=== PATIENT | female | born 1950 | race Caucasian/White ===

== ENCOUNTER 2016-04-26 07:11 | Emergency (ER) | payer OTHER ==
[2016-04-26 07:23] VITALS: BP 152/74
--- NOTE | 2016-04-26 07:30 | UC ---
Throat Pain/Nasal Avtar HPI - HPI Summary HPI Summary: SORE THROAT X 1 DAY , NO FEVER, + COUGH, NASAL CONGESTION + STREP CONTACT AND FLU CONTACT - History of Current Complaint Chief Complaint: UCRespiratory Stated Complaint: SINUS,SORE THROAT Time Seen by Provider: 04/26/16 07:24 Hx Obtained From: Patient Hx Last Menstrual Period: age 50s Onset/Duration: Gradual Onset, Lasting Days - 1, Still Present Severity: Moderate Cough: None Associated Signs & Symptoms: Positive: Sinus Discomfort, Nasal Discharge. Negative: Fever, Rash - Allergies/Home Medications Allergies/Adverse Reactions: Allergies Allergy/AdvReac Type Severity Reaction Status Date / Time Azithromycin [From Zithromax] Allergy Hives Verified 04/26/16 07:17 Mushroom Extract Complex Allergy Anaphylatic Verified 04/26/16 07:17 Shock mushrooms Allergy Anaphylatic Uncoded 04/26/16 07:17 Shock PMH/Surg Hx/FS Hx/Imm Hx Previously Healthy: Yes - Surgical History Surgical History: Yes Surgery Procedure, Year, and Place: C-Sections, 1975 1978. Cholecystectomy, 1999, [facility]. Left Foot Tumor, 2012, [facility] - Family History Known Family History: Positive: None Negative: Diabetes - Social History Alcohol Use: None Substance Use Type: None Smoking Status (MU): Former Smoker When Did the Patient Quit Smoking/Using Tobacco: 35 YRS AGO - Immunization History Most Recent Influenza Vaccination: 2016 Review of Systems Constitutional: Chills, Fatigue Skin: Negative Eyes: Negative ENT: Sore Throat, Nasal Discharge Respiratory: Cough Cardiovascular: Negative Gastrointestinal: Negative Genitourinary: Negative All Other Systems Reviewed And Are Negative: Yes Physical Exam Triage Information Reviewed: Yes Appearance: Well-Appearing, No Pain Distress, Well-Nourished Vital Signs: Initial Vital Signs Temp 99.1 F 04/26/16 07:19 Pulse 108 04/26/16 07:19 Resp 20 04/26/16 07:19 BP 152/74 04/26/16 07:19 Pulse Ox 97 04/26/16 07:19 Vital Signs Reviewed: Yes Eyes: Positive: Conjunctiva Clear ENT: Positive: Normal ENT inspection, Hearing grossly normal, Pharyngeal erythema, Nasal congestion, TMs normal. Negative: Nasal drainage Neck exam: Normal Neck: Positive: Supple, Nontender, No Lymphadenopathy Respiratory: Positive: Chest non-tender, Lungs clear, Normal breath sounds Cardiovascular: Positive: RRR, No Murmur, Pulses Normal Abdominal Exam: Normal Skin Exam: Normal Throat Pain/Nasal Course/Dx - Differential Dx/Diagnosis Provider Diagnoses: VIRAL PHARYNGITIS Discharge - Discharge Plan Condition: Stable Disposition: HOME Patient Education Materials: Pharyngitis (ED) Referrals: Deb Espitia MD [Primary Care Provider] - If Needed Additional Instructions: NEGATIVE RAPID STREP VIRAL PHARYNGITIS , NO NEED FOR ABX AT THIS TIME CONT. WITH REST, INCREASE FLUID, TYLENOL NEEDED FOR PAIN AND FEVER FOLLOW UP NEEDED
== END 2016-04-26 07:49 | disposition home or self-care (01) ==
LOC: UCCORT 07:11
DX: J02.9 Acute pharyngitis, unspecified (principal); Z87.891 Personal history of nicotine dependence
CPT/HCPCS: 87651; 99211; G0463

== ENCOUNTER 2017-03-15 10:00 | Emergency (ER) | payer OTHER ==
--- NOTE | 2017-03-15 11:24 | UC ---
Throat Pain/Nasal Avtar HPI - HPI Summary HPI Summary: Pt presents with sinus symptoms and cough. She tells me that about a month ago she developed sinus pain/pressure/congestion and was seen by here PCP and rx'd amoxicillin for 10 days. Her symptoms resolved for about a week, but then returned 1 week ago. Over the last 2-3 days she has developed a dry cough. She has tried mucinex and "cold and flu" medicine OTC with no relief. She also tells me that after taking the amoxicillin she developed a yeast infection, requiring diflucan. Denies fevers, chills, SOB, chest pain, abdominal pain, N/V/ D/C - History of Current Complaint Stated Complaint: CONGESTION Time Seen by Provider: 03/15/17 11:23 Hx Obtained From: Patient Hx Last Menstrual Period: age 50s Onset/Duration: Gradual Onset Severity: Moderate Cough: Nonproductive - Allergies/Home Medications Allergies/Adverse Reactions: Allergies Allergy/AdvReac Type Severity Reaction Status Date / Time Azithromycin [From Zithromax] Allergy Hives Verified 03/15/17 11:18 Mushroom Extract Complex Allergy Anaphylatic Verified 03/15/17 11:18 Shock mushrooms Allergy Anaphylatic Uncoded 03/15/17 11:18 Shock Home Medications: Home Medications Naproxen TAB* [Naprosyn 250 mg TAB*] 250 mg PO Q8H PRN 03/15/17 [History Confirmed 03/15/17] Phenylephrine-Diphenhydramine- [Robitussin Cough & Cold D] 1 mis PO PRN [History] PMH/Surg Hx/FS Hx/Imm Hx - Additional Past Medical History Additional PMH: SLE Previously Healthy: Yes - Surgical History Surgical History: Yes Surgery Procedure, Year, and Place: C-Sections, 1975 1978. [facility]cystectomy, [facility], [facility]. Left Foot Tumor, 2012, [facility] - Family History Known Family History: Positive: None Negative: Diabetes - Social History Occupation: Employed Full-time Lives: With Family Alcohol Use: None Substance Use Type: None Smoking Status (MU): Former Smoker When Did the Patient Quit Smoking/Using Tobacco: 35 YRS AGO - Immunization History Most Recent Influenza Vaccination: 2016 Review of Systems Constitutional: Negative Skin: Negative Eyes: Negative ENT: Sore Throat, Nasal Discharge, Sinus Congestion, Sinus Pain/Tenderness Respiratory: Cough Cardiovascular: Negative Gastrointestinal: Negative Neurological: Negative Psychological: Negative All Other Systems Reviewed And Are Negative: Yes Physical Exam Triage Information Reviewed: Yes Appearance: Well-Appearing, Well-Nourished Vital Signs Reviewed: Yes Eyes: Positive: Conjunctiva Clear. Negative: Conjunctiva Inflamed, Discharge ENT: Positive: Hearing grossly normal, Pharynx normal, Nasal congestion, Nasal drainage, TMs normal, Sinus tenderness, Uvula midline. Negative: Pharyngeal erythema, TM bulging, TM dull, TM red, Tonsillar swelling, Tonsillar exudate Neck: Positive: Supple, Nontender, No Lymphadenopathy Respiratory: Positive: Chest non-tender, No respiratory distress, No accessory muscle use, Wheezing - Throughout. Negative: Crackles, Rhonchi Cardiovascular: Positive: RRR, No Murmur, Pulses Normal Neurological: Positive: Alert Psychological: Positive: Age Appropriate Behavior Skin: Negative: rashes Throat Pain/Nasal Course/Dx - Course Course Of Treatment: Sinusitis - Augmentin. Bronchitis - Albuterol. Yeast - Diflucan - Differential Dx/Diagnosis Differential Diagnosis/HQI/PQRI: Influenza, Otitis Media, Sinusitis, Tonsillitis , URI Provider Diagnoses: Sinusitis. Bronchitis Discharge - Discharge Plan Condition: Stable Disposition: HOME Prescriptions: Albuterol HFA INHALER* [Ventolin HFA Inhaler*] 1 - 2 puff INH Q6H PRN #1 mdi PRN Reason: Cough Amoxicillin/Clavulanate TAB* [Augmentin TAB 875*] 875 mg PO BID #20 tab Fluconazole 100 MG TAB* [Diflucan 100 MG TAB*] 100 mg PO DAILY #1 tab Patient Education Materials: Sinusitis (ED), Acute Bronchitis (ED) Forms: *Work Release Referrals: Deb Espitia MD [Primary Care Provider] - Additional Instructions: If you develop a fever, SOB, chest pain, new or worsening symptoms - please call your PCP or go to the ED. Your blood pressure was high at todays visit. Please see your primary provider within 4 weeks for recheck and re-evaluation.
[2017-03-15 11:27] VITALS: BP 140/66
== END 2017-03-15 11:41 | disposition home or self-care (01) ==
LOC: UCCORT 10:00
DX: J32.9 Chronic sinusitis, unspecified (principal); J40 Bronchitis, not specified as acute or chronic; Z88.1 Allergy status to other antibiotic agents; Z90.49 Acquired absence of other specified parts of digestive tract; Z87.891 Personal history of nicotine dependence
CPT/HCPCS: 99211; G0463

== ENCOUNTER 2018-04-09 08:46 | Emergency (ER) | payer MEDICARE, OTHER ==
[2018-04-09 09:06] VITALS: BP 143/83
--- NOTE | 2018-04-09 09:56 | UC ---
Throat Pain/Nasal Avtar HPI - HPI Summary HPI Summary: Patient presents to urgent care reporting 6 days of progressive cough congestion sinus pressure. Patient states she has pain in her chest with coughing only. Patient has taken Tylenol and Motrin for fevers of 100.1. Last dose last night. Patient also reports coughing yellow and green sputum. Patient denies headache. Patient with ear pain, sinus congestion. Patient without sick contacts of states her is becoming sick. Patient did get a flu vaccine this year. Patient is not immunocompromised otherwise. Patient' s medications reviewed this visit. - History of Current Complaint Chief Complaint: UCRespiratory Stated Complaint: SORE THROAT, COUGH Time Seen by Provider: 04/09/18 09:43 Hx Obtained From: Patient Hx Last Menstrual Period: age 50s Pain Intensity: 10 - Allergies/Home Medications Allergies/Adverse Reactions: Allergies Allergy/AdvReac Type Severity Reaction Status Date / Time azithromycin Allergy Hives Verified 04/09/18 09:02 mushrooms Allergy Anaphylatic Uncoded 03/15/17 11:18 Shock PMH/Surg Hx/FS Hx/Imm Hx Previously Healthy: Yes - Surgical History Surgical History: Yes Surgery Procedure, Year, and Place: C-Sections, 1975 1978. Cholecystectomy, 1999, [facility]. Left Foot Tumor, 2012, [facility] - Family History Known Family History: Positive: None Negative: Diabetes - Social History Occupation: Retired Lives: With Family Alcohol Use: Occasionally Substance Use Type: None Smoking Status (MU): Former Smoker When Did the Patient Quit Smoking/Using Tobacco: 35 YRS AGO - Immunization History Most Recent Influenza Vaccination: 2016 Review of Systems All Other Systems Reviewed And Are Negative: Yes Constitutional: Positive: Fever, Fatigue Skin: Positive: Negative ENT: Positive: Ear Ache, Nasal Discharge, Sinus Congestion Respiratory: Positive: Shortness Of Breath Cardiovascular: Positive: Negative Physical Exam - Summary Physical Exam Summary: Vital Signs Reviewed: Yes A+Ox3, no distress Eyes: Conjunctiva Clear, TONI. EOM intact and full ENT: Hearing grossly normal TM x 2 clear, mmoist, uvula midline, no exudate, no erythema Neck: Positive: Supple Respiratory: Positive: coarse, persistent cough + scattered wheeze, decreased BS left base no retraction, sentences interrupted with cough Cardiovascular: RRR nl s1, s2 no m/r CBT <2 sec abd soft + BS nt/nd no guarding, no distension Musculoskeletal Exam: NASH x 4 without difficulty Strength Intact, ROM Intact Neurological: Positive: Alert, + sensation throughout Psychological: Positive: Normal Response To Family Skin: Positive: no rash, no ecchymosis Triage Information Reviewed: Yes Vital Signs: Initial Vital Signs Temp 98.4 F 04/09/18 09:01 Pulse 88 04/09/18 09:01 Resp 16 04/09/18 09:01 BP 143/83 04/09/18 09:01 Pulse Ox 98 04/09/18 09:01 Diagnostics - Radiology No standard instances Radiology Interpretation Completed By: Radiologist - Patient Name: RAUL CONDON Medical Record#: [id number] Ordering Physician: Adamaris Mariano MD Acct.#: [id number] : 1950 Age: 68 Sex: F Location: [facility] Exam Date: 04/09/18 1000 ADM Status: REG ER Order Information: CHEST PA & LAT 2 VWS Accession Number: [id number] CPT: 97078 HISTORY: cough, right base rhonci COMPARISONS: None VIEWS: 4: Frontal dual-energy and lateral views of the chest. FINDINGS: CARDIOMEDIASTINAL SILHOUETTE: The cardiomediastinal silhouette is normal. OTILIA: The otilia are normal. PLEURA: The costophrenic angles are sharp. No pleural abnormalities are noted. LUNG PARENCHYMA: The lungs are clear. ABDOMEN: The upper abdomen is clear. There is no subphrenic gas. BONES AND SOFT TISSUES: No bone or soft tissue abnormalities are noted. OTHER: None. IMPRESSION: NO ACTIVE CARDIOPULMONARY DISEASE. <Electronically signed by Carmelo Fairchild MD in OV> 1032 Dictated By: Carmelo Fairchild MD Dictated Date/Time: 04/09/18 1032 Transcribed Date/Time: 04/09/18 1031 Copy to: CC:Adamaris Mariano MD; Deb Espitia MD Imaging - [facility] Imaging [facility] [address] [place] [id number] ph ([phone]) ph ([phone]) ph ([phone]) This report is only to be considered final once signed by the Provider(s) as displayed in the "<Electronically Signed by >" field (s). Absence of a signature indicates the report is in a draft status and still needs to be finalized. In the event this document was created by someone other than the signing Provider, the individual initiating the document will be listed in the "Entered by:" or "Dictated by:" dean. 1 of 1 Re-Evaluation - Re-Evaluation First Eval Change: Improved - Pt improved following neb -cough improved reviewed cxr Will rx abx humidified air secretion precaution return precaution d/w robitussin with codeine - narcotic precaution, return precaution pt comfortable and in agreement with plan Throat Pain/Nasal Course/Dx - Course Course Of Treatment: Patient presents to urgent care with 6 days progressive persistent cough. Patient states clear phlegm. Patient also with tactile temperatures last measured temperature was 100.12 days ago. Patient's been taking [id number] medications with little improvement. Patient states the cough keeps her awake at night. On exam patient with scattered wheezing and decreased breath sounds at left base. We'll give nebulizer chest x-ray and reassess. Patient in agreement with. pt's BP mildly elevated - recommend recehck with PCP Assessment/Plan: This report was requested by: Adamaris Mariano | Reference #: [id number] - Differential Dx/Diagnosis Provider Diagnosis: Acute bronchitis Discharge - Sign-Out/Discharge Documenting (check all that apply): Patient Departure All imaging exams completed and their final reports reviewed: Yes - Discharge Plan Condition: Stable Disposition: HOME Prescriptions: Albuterol HFA INHALER* [Ventolin HFA Inhaler*] 2 puff INH Q4H PRN #1 mdi PRN Reason: wheeze Amoxicillin PO (*) [Amoxicillin 500 MG CAP*] 500 mg PO Q12H #20 cap Fluconazole [Diflucan 150 MG (NF)] 150 mg PO ONCE PRN #1 tab PRN Reason: vaginal yeast infection guaiFENesin/CODIEN 100MG-10MG* [Robitussin AC 100Mg-10Mg*] 10 ml PO TID #100 ml MDD 30 Patient Education Materials: Acute Bronchitis (ED) Referrals: Deb Espitia MD [Primary Care Provider] - Additional Instructions: -Take antibiotics exactly as prescribed until gone -Use your albuterol puffer - 2 puffs every 4 hours for the next 2 days - then as needed -Stay well hydrated - avoid excess caffeine and all alcohol - eat regular, healthy meals - - humidify the air in the room where you sleep - boil water, run a hot steam shower, vaporizer, cups of water by heat register - okay to take over the counter decongestant and cough medication. you have been given a prescription for robitussin with codeine. Do NOT drive, operate machinery, drink alcohol or operate machinery while taking - this is a narcotic -- These infections are spread by secretions - do NOT share eating or drinking utensils - clean items you share with other people such as cell phones, computer mouse, TV remote, computer tablets,etc.. Once you have been antibiotics for 2 days, change your toothbrush and your pillowcase. -Contact your doctor to arrange a follow-up appointment this week. Call your doctor, return here or go to the emergency department with any questions or concerns - Billing Disposition and Condition Condition: STABLE Disposition: Home
[2018-04-09] MEDS ORDERED: Albuterol/Ipratropium NEB.SOL* Albuterol 2.5 MG/Ipratropium 0.5 MG 3 ML INH ONE (10:01)
== END 2018-04-09 10:58 | disposition home or self-care (01) ==
LOC: UCCORT 08:46
DX: J20.9 Acute bronchitis, unspecified (principal); Z88.1 Allergy status to other antibiotic agents; Z87.891 Personal history of nicotine dependence
CPT/HCPCS: 71046; 99212; A9270-GY; G0463

== ENCOUNTER 2018-04-14 10:07 | Emergency (ER) | payer MEDICARE, OTHER ==
[2018-04-14 10:44] VITALS: BP 147/66
--- NOTE | 2018-04-14 11:28 | UC ---
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 - History of Current Complaint Chief Complaint: UCLowerExtremity Stated Complaint: RT ANKLE INJURY Time Seen by Provider: 04/14/18 11:21 Hx Obtained From: Patient Hx Last Menstrual Period: age 50s Onset/Duration: Sudden Onset Timing: Constant Pain Intensity: 6 Aggravating: weight on ankle Associated Signs & Symptoms: Positive: Edema. Negative: Fever - Allergy/Home Medications Allergies/Adverse Reactions: Allergies Allergy/AdvReac Type Severity Reaction Status Date / Time azithromycin Allergy Hives Verified 04/14/18 10:40 mushrooms Allergy Anaphylatic Uncoded 04/14/18 10:40 Shock PMH/Surg Hx/FS Hx/Imm Hx Endocrine History: Dyslipidemia GI/ History: Gastroesophageal Reflux - Surgical History Surgical History: Yes Surgery Procedure, Year, and Place: C-Sections, 1975 1978. Cholecystectomy, 1999, [facility]. Left Foot Tumor, 2012, [facility] - Family History Known Family History: Positive: None Negative: Diabetes - Social History Alcohol Use: Occasionally Substance Use Type: None Smoking Status (MU): Former Smoker When Did the Patient Quit Smoking/Using Tobacco: ~1982 - Immunization History Most Recent Influenza Vaccination: 2016 Vaccination Up to Date: Yes Review of Systems All Other Systems Reviewed And Are Negative: Yes Constitutional: Positive: Negative Skin: Positive: Negative Eyes: Positive: Negative ENT: Positive: Negative Respiratory: Positive: Negative Cardiovascular: Positive: Negative Gastrointestinal: Positive: Negative Genitourinary: Positive: Negative Motor: Positive: Negative Neurovascular: Positive: Negative Musculoskeletal: Positive: Edema - R ankle with pain Neurological: Positive: Negative Psychological: Positive: Negative Is Patient Immunocompromised?: No Physical Exam Triage Information Reviewed: Yes Appearance: Well-Appearing Vital Signs: Initial Vital Signs Temp 98 F 04/14/18 10:37 Pulse 63 04/14/18 10:37 Resp 16 04/14/18 10:37 BP 147/66 04/14/18 10:37 Pulse Ox 99 04/14/18 10:37 Vital Signs Reviewed: Yes ENT: Positive: Normal ENT inspection Neck: Positive: Supple Respiratory: Positive: Lungs clear Cardiovascular: Positive: RRR, No Murmur Abdomen Description: Positive: Nontender, No Organomegaly, Soft Bowel Sounds: Positive: Present Musculoskeletal: Positive: Other: - RLE: hip, knee, achilles and foot non tender and no deformity. lateral ankle is swollen and tender with limited rom. foot has full s/v/m function. Psychological: Positive: Age Appropriate Behavior Skin Exam: Normal Diagnostics - Radiology No standard instances Radiology Interpretation Completed By: Radiologist - 1. ASYMMETRIC SOFT TISSUE SWELLING OVERLYING THE FIBULAR MALLEOLUS WHICH CAN BE SEEN IN THE SETTING OF AT LEAST A LIGAMENTOUS INJURY OF THE LATERAL RIGHT ANKLE. 2. THERE IS A TINY BONY FOCUS OVERLYING THE LATERAL ASPECT OF THE DISTAL FIBULAR MALLEOLUS WHICH COULD BE SEEN IN THE SETTING OF SLIGHT AVULSION INJURY. Course/Dx - Course Course Of Treatment: tiny non displaced avulsion fx lateral R ankle - Diagnoses Provider Diagnosis: Avulsion fracture of right ankle Discharge - Sign-Out/Discharge Documenting (check all that apply): Patient Departure All imaging exams completed and their final reports reviewed: Yes - Discharge Plan Condition: Stable Disposition: HOME Patient Education Materials: Avulsion Fracture (ED) Referrals: Yaw Duncan MD [Medical Doctor] - As Soon As Possible - Billing Disposition and Condition Condition: STABLE Disposition: Home - Attestation Statements Provider Attestation: I was available for consult. This patient was seen by the MARLO. The patient was not presented to, seen by, or examined by me. EK
== END 2018-04-14 11:45 | disposition home or self-care (01) ==
LOC: UCCORT 10:07
DX: S82.61XA Displaced fracture of lateral malleolus of right fibula, initial encounter for closed fracture (principal); W10.9XXA Fall (on) (from) unspecified stairs and steps, initial encounter; Y92.9 Unspecified place or not applicable; Z88.1 Allergy status to other antibiotic agents; Z87.891 Personal history of nicotine dependence
CPT/HCPCS: 99213; G0463